=== PATIENT | male | born 1975 | race Caucasian/White ===

== ENCOUNTER 2021-04-17 01:39 | Emergency (ER) | payer OTHER ==
[2021-04-17 02:34] LABS: HEMOGLOBIN 14.9 gm/dl (14.0-17.5); RED BLOOD COUNT 4.51 M/UL (4.20-5.50); WHITE BLOOD COUNT 7.7 K/UL (4.5-11.0)
[2021-04-17 02:55] LABS: BUN/CREATININE RATIO 15 (0-10)
[2021-04-17] MEDS ORDERED: TESSALON PERLE100 MG PO (03:56)
[2021-04-17] MEDS ORDERED: PREDNISONE 50 M50 MG PO (03:56)
[2021-04-17] MEDS ORDERED: DOXYCYCLINE MO100 MG PO (03:56)
[2021-04-17] MEDS ORDERED: VENTOLIN HFA 66.7 GM INH (03:56)
== END 2021-04-17 04:35 | disposition home or self-care (01) ==
LOC: ER1 01:39
PROVIDERS: Physician Assistant
DX: J44.1 Chronic obstructive pulmonary disease with (acute) exacerbation (principal); Z20.822 Contact with and (suspected) exposure to COVID-19; J40 Bronchitis, not specified as acute or chronic; F17.210 Nicotine dependence, cigarettes, uncomplicated; I10 Essential (primary) hypertension; E87.6 Hypokalemia
CPT/HCPCS: 71045; 80053; 82550; 82553; 83874; 83880; 84484; 85025; 93005; 94640; 94664; 96372; 99285; J2930; U0002